=== PATIENT | female | born 1955 | race Caucasian/White ===

== ENCOUNTER → 2016-10-14 | Outpatient (CLI) | payer OTHER ==
[~2016-10-14] MED LIST: FLEXERIL10 MG PO; MOBIC15 MG PO
== END | disposition short-term general hospital (02) ==
LOC: CLPAIN 10-13 11:41
DX: M46.1 Sacroiliitis, not elsewhere classified (principal); M76.31 Iliotibial band syndrome, right leg; M54.16 Radiculopathy, lumbar region

== ENCOUNTER 2016-10-28 12:43 | Day surgery (SDC) | payer OTHER | END 2016-10-28 14:51 | disposition short-term general hospital (02) | LOC: SURGOP 12:43 | PROC: 3E0U33Z Introduction of Anti-inflammatory into Joints, Percutaneous Approach (ICD-10-PCS; principal; 2016-10-28) | PROC: 3E0U3BZ Introduction of Anesthetic Agent into Joints, Percutaneous Approach (ICD-10-PCS; 2016-10-28) | DX: M46.1 Sacroiliitis, not elsewhere classified (principal) | CPT/HCPCS: G0260-RT; J3301 ==